=== PATIENT | male | born 1970 | race Caucasian/White ===

== ENCOUNTER 2016-07-06 17:35 | Emergency (ER) | payer OTHER ==
[2016-07-06] MEDS ORDERED: NORMAL SALINE 1000 ML 1,000 ML IV ONE (19:33)
--- NOTE | 2016-07-06 19:38 | ER Document Report ---
ED Medical Screen (RME) - General Chief Complaint: High Blood Sugar Stated Complaint: BLOOD SUGAR PROBLEMS, URINARY PAIN Mode of Arrival: Ambulatory Information source: Patient Notes: pt reports DM1 for 40 years, reports urinary discomfort, frequency, cough, just doesn't feel good. Hx CAD, denies cp, sob. Reports high BG. Accucheck here 386. Pt is on vacation from [place]. TRAVEL OUTSIDE OF THE [place] IN LAST 30 DAYS: No - Related Data Allergies/Adverse Reactions: No Known Allergies Allergy (Unverified 07/06/16 17:46) Past Medical History Renal/ Medical History: Denies: Hx Peritoneal Dialysis Physical Exam - Vital signs Vitals: Temp Pulse Resp BP Pulse Ox 98.9 F 99 16 142/79 H 96 07/06/16 17:44 07/06/16 17:44 07/06/16 17:44 07/06/16 17:44 07/06/16 17:44 Course - Vital Signs Vital signs: Temp Pulse Resp BP Pulse Ox 98.9 F 99 16 142/79 H 96 07/06/16 17:44 07/06/16 17:44 07/06/16 17:44 07/06/16 17:44 07/06/16 17:44 - Laboratory Laboratory results interpreted by me: 07/06/16 19:01 POC Glucose 386 H
[2016-07-06 20:00] LABS: APPEARANCE,URINE CLEAR; BILIRUBIN,URINE NEGATIVE (NEGATIVE); GLUCOSE, URINE >=500 mg/dL (NEGATIVE); KETONES,URINE TRACE mg/dL (NEGATIVE); LEUKOCYTE ESTERASE,URINE SMALL (NEGATIVE); NITRITE,URINE NEGATIVE (NEGATIVE); PROTEIN,URINE NEGATIVE (NEGATIVE); URINE SPECIFIC GRAVITY 1.031; UROBILINOGEN,URINE NEGATIVE mg/dL (<2.0)
[2016-07-06 20:36] LABS: ABSOLUTE BASOPHILS # (AUTO) 0.1 10^3/uL (0.0-0.2); ABSOLUTE EOSINOPHILS # (AUTO) 0.1 10^3/uL (0.0-0.6); ABSOLUTE LYMPHOCYTES (AUTO) 1.1 10^3/uL (0.5-4.7); ABSOLUTE MONOCYTES (AUTO) 0.5 10^3/uL (0.1-1.4); ABSOLUTE NEUT (AUTO) 7.5 10^3/uL (1.7-8.2); BASOPHILS % (AUTO) 0.6 % (0-2); EOSINOPHILS % (AUTO) 0.7 % (0-6); HEMATOCRIT 41.7 % (37.9-51.0); HEMOGLOBIN 14.3 g/dL (13.5-17.0); HGB HCT DIFFERENCE 1.2; LYMPHOCYTES % (AUTO) 11.5 % (13-45); MEAN CORPUSCULAR HEMOGLOBIN 31.7 pg (27.0-33.4); MEAN CORPUSCULAR HGB CONC 34.4 g/dL (32.0-36.0); MEAN CORPUSCULAR VOLUME 92 fl (80-97); MONOCYTES % (AUTO) 5.8 % (3-13); RED BLOOD COUNT 4.51 10^6/uL (4.35-5.55); RED CELL DISTRIBUTION WIDTH 13.7 % (11.5-14.0); SEGMENTED NEUTROPHILS % (AUTO) 81.4 % (42-78); WHITE BLOOD COUNT 9.2 10^3/uL (4.0-10.5)
--- NOTE | 2016-07-06 20:45 | EKG REPORT ---
SEVERITY:- NORMAL ECG - SINUS RHYTHM : Confirmed by: Glenn John MD 06-Jul-2016 20:45:24
[2016-07-06 20:49] LABS: ALANINE AMINOTRANSFERASE 95 U/L (21-72); ALKALINE PHOSPHATASE 86 U/L (38-126); ANION GAP 13 (5-19); ASPARTATE AMINO TRANSFERASE 38 U/L (17-59); BILIRUBIN,DIRECT 0.3 mg/dL (0.0-0.4); BILIRUBIN,TOTAL 2.6 mg/dL (0.2-1.3); BLOOD UREA NITROGEN 21 mg/dL (7-20); CALCIUM 9.2 mg/dL (8.4-10.2); CARBON DIOXIDE 24 mmol/L (22-30); CHLORIDE 100 mmol/L (98-107); CREATININE RESULT 0.71 mg/dL (0.52-1.25); LIPASE 167.7 U/L (23-300); POTASSIUM 4.9 mmol/L (3.6-5.0); SODIUM 137.3 mmol/L (137-145); TOTAL PROTEIN 6.1 g/dL (6.3-8.2)
[2016-07-06 20:57] LABS: GLUCOSE 419 mg/dL (75-110)
--- NOTE | 2016-07-06 21:12 | ER Document Report ---
ED General - General Time seen by provider: 21:01 Mode of Arrival: Ambulatory Information source: Patient, Relative TRAVEL OUTSIDE OF THE [place] IN LAST 30 DAYS: No - HPI Onset: Yesterday - Refer to HPI notes Similar symptoms previously: No Recently seen / treated by doctor: No <CRISTOPHER CASTLE - Last Filed: 07/06/16 22:31> <ELIESERELINPAGESOCO - Last Filed: 07/06/16 23:41> - General Chief Complaint: High Blood Sugar Stated Complaint: BLOOD SUGAR PROBLEMS, URINARY PAIN Notes: Patient is a 46-year-old male presented to the emergency department for high blood sugar, frequent urination, and burning with urination. Patient states that he has had dysuria and urinary frequency for 1 day. Patient has type I diabetes mellitus since age 12 years old. Patient has had blood glucose levels of 200-300s. Patient states that he went to urgent care and was told to come to the emergency department. Patient denies any fever, cough, vomiting, abdominal pain. Patient states that he was hospitalized for pneumonia in mid April. Patient is concerned for DKA. Patient states that his primary care physician who also is his provider for his diabetes stated that one of his insulins may be causing an increase of sugar in his urine. Patient has no known allergies. (CRISTOPHER CASTLE) - Related Data Allergies/Adverse Reactions: No Known Allergies Allergy (Unverified 07/06/16 17:46) Past Medical History - General Information source: Patient - Social History Smoking Status: Never Smoker Cigarette use (# per day): No Chew tobacco use (# tins/day): No Frequency of alcohol use: None Drug Abuse: None Family History: None Patient has suicidal ideation: No Patient has homicidal ideation: No <CRISTOPHER CASTLE - Last Filed: 07/06/16 22:31> Review of Systems - Review of Systems Constitutional: No symptoms reported EENT: No symptoms reported Cardiovascular: No symptoms reported Respiratory: No symptoms reported Gastrointestinal: No symptoms reported Genitourinary: See HPI, Burning, Dysuria, Frequency Male Genitourinary: No symptoms reported Musculoskeletal: No symptoms reported Skin: No symptoms reported Hematologic/Lymphatic: No symptoms reported Neurological/Psychological: No symptoms reported -: Yes All other systems reviewed and negative <CRISTOPHER CASTLE - Last Filed: 07/06/16 22:31> Physical Exam <CRISTOPHER CASTLE - Last Filed: 07/06/16 22:31> <SOCO ALEXANDER - Last Filed: 07/06/16 23:41> - Vital signs Vitals: Temp Pulse Resp BP Pulse Ox 98.9 F 99 16 142/79 H 96 07/06/16 17:44 07/06/16 17:44 07/06/16 17:44 07/06/16 17:44 07/06/16 17:44 - Notes Notes: GENERAL: Alert, interacts well. No acute distress. HEAD: Normocephalic, atraumatic. EYES: Pupils equal, round, and reactive to light. Extraocular movements intact. ENT: Oral mucosa moist, tongue midline. NECK: Full range of motion. Supple. Trachea midline. LUNGS: Clear to auscultation bilaterally, no wheezes, rales, or rhonchi. No respiratory distress. HEART: Regular rate and rhythm. No murmurs, gallops, or rubs. ABDOMEN: Soft, non-tender. Non-distended. Bowel sounds present in all 4 quadrants. EXTREMITIES: Moves all 4 extremities spontaneously. No edema, radial and dorsalis pedis pulses 2/4 bilaterally. No cyanosis. NEUROLOGICAL: Alert and oriented x3. Normal speech. PSYCH: Normal affect, normal mood. SKIN: Warm, dry, normal turgor. No rashes or lesions noted. (CRISTOPHER CASTLE) Course - Laboratory Result Diagrams: 07/06/16 19:50 07/06/16 19:50 <CRISTOPHER CASTLE - Last Filed: 07/06/16 22:31> - Laboratory Result Diagrams: 07/06/16 19:50 07/06/16 19:50 <SOCO ALEXANDER - Last Filed: 07/06/16 23:41> - Re-evaluation Re-evalutation: 07/06/16 22:25 CBC unremarkable, CMP shows slightly elevated BUN at 21, markedly elevated glucose at 419, no anion gap, normal lipase, normal CO2, urinalysis only shows trace ketones but moderate blood and small leukocyte esterase, so and greater than 500 glucose. Treat with Bactrim for urinary tract infection with hematuria , gonorrhea chlamydia swabs are negative. Chest x-ray unremarkable. Patient hydrated with liter of normal saline and feels much better. Elevated glucose covered with insulin. (SOCO ALEXANDER) - Vital Signs Vital signs: Temp Pulse Resp BP Pulse Ox 98.9 F 94 16 120/59 L 96 07/06/16 17:44 07/06/16 23:01 07/06/16 23:01 07/06/16 23:01 07/06/16 23:01 - Laboratory Laboratory results interpreted by me: 07/06/16 07/06/16 07/06/16 18:15 19:01 19:50 Seg Neutrophils % 81.4 H Lymphocytes % 11.5 L BUN Glucose POC Glucose 386 H Total Bilirubin ALT Total Protein Urine Glucose (UA) >=500 H Urine Ketones TRACE H Urine Blood MODERATE H Ur Leukocyte Esterase SMALL H 07/06/16 07/06/16 07/06/16 19:50 20:46 22:31 Seg Neutrophils % Lymphocytes % BUN 21 H Glucose 419 H* POC Glucose 367 H 343 H Total Bilirubin 2.6 H ALT 95 H Total Protein 6.1 L Urine Glucose (UA) Urine Ketones Urine Blood Ur Leukocyte Esterase - EKG Interpretation by Me Additional EKG results interpreted by me: 07/06/16 22:26 EKG sinus rhythm rate 92, normal axis, normal and was, no ST segment elevations or depressions, no T-wave inversions per my interpretation. (SOCO ALEXANDER) Discharge <CRISTOPHER CSATLE - Last Filed: 07/06/16 22:31> <SOCO ALEXANDER - Last Filed: 07/06/16 23:41> - Discharge Clinical Impression: Hyperglycemia due to type 1 diabetes mellitus UTI (urinary tract infection) Qualifiers: Urinary tract infection type: acute cystitis Hematuria presence: with hematuria Qualified Code(s): N30.01 - Acute cystitis with hematuria Condition: Stable Disposition: HOME, SELF-CARE Instructions: Urinary Tract Infection ([facility]), Trimethoprim-Sulfa ([facility]) Prescriptions: Sulfamethoxazole/Trimethoprim [Bactrim Ds Tablet] 1 each PO BID #14 tablet Forms: Return to Work Scribe Attestation: 07/06/16 23:41 I personally performed the services described in the documentation, reviewed and edited the documentation which was dictated to the scribe in my presence, and it accurately records my words and actions. (SOCO ALEXANDER) Scribe Documentation - Scribe Written by Scribe:: Butch Phillips, 07/06/16 22:40 acting as scribe for :: [place] <CRISTOPHER CASTLE - Last Filed: 07/06/16 22:31>
[2016-07-06 22:04] LABS: CHLAM PCR NOT DETECTED (NOT DETECT)
[2016-07-06] MEDS ORDERED: SULFAMETHOXAZOLE/TRIMETHOPRIM 800-160 MG TABLET PO ONE (22:16)
[2016-07-06] MEDS ORDERED: INSULIN REG, HUMAN 100 UNIT/ML 3 ML VIAL (PYX) SUBCUT ONE (22:35)
[2016-07-06 23:04] VITALS: BP 120/59
== END 2016-07-06 23:01 | disposition home or self-care (01) ==
LOC: ER 17:35
DX: E10.65 Type 1 diabetes mellitus with hyperglycemia (principal); N30.01 Acute cystitis with hematuria
CPT/HCPCS: 93005; 99285; 96360; 36415; 82962; 83690; 85025; 80053; 81001; 87491; 87591; 71020; 93010; J1815; J7030